=== PATIENT | female | born 1995 | race Caucasian/White ===

== ENCOUNTER 2023-07-22 08:21 | Day surgery (SDC) | payer OTHER ==
[2023-07-20 11:16] VITALS: BMI 35.9
[2023-07-22] MEDS: LACTATED RINGERS 1,000 ML IV SCH (08:52)
[2023-07-22] MEDS: LIDOCAINE 1% (10MG/ML) FOR IV START INTRADERMA ONE (08:52)
[2023-07-22] MEDS ORDERED: MIDAZOLAM 2 MG/2 ML VIAL ONE (08:58)
[2023-07-22] MEDS ORDERED: PROPOFOL 10 MG/ML 20 ML VIAL IV ONE (08:58)
[2023-07-22 09:13] VITALS: TEMP 98.1
--- NOTE | 2023-07-22 09:15 | P.PCN ---
Date of Procedure: 07/22/23 Procedure(s) Performed: BRIEF HISTORY: Patient is a 27-year-old pleasant white female scheduled for an elective colonoscopy as a part of change in bowel habits for the last 6 months duration. PROCEDURE PERFORMED: Colonoscopy. PREOPERATIVE DIAGNOSIS:Change in bowel habits IV sedation per Anesthesia. PROCEDURE: After informed consent was obtained, the patient, was brought into the endoscopy unit. IV sedation was administered by Anesthesia under continuous monitoring. Digital rectal examination was normal. Initially the Olympus CF-160 flexible video colonoscope was then inserted in the rectum, gradually advanced into the cecum without any difficulty. Careful examination was performed as the scope was gradually being withdrawn. Ileocecal valve and the appendiceal orifice were visualized and appeared normal. Prep was excellent. Mucosa of the cecum, ascending colon, transverse colon, descending colon, sigmoid colon, and rectum appeared normal. Retroflexion was performed in the rectum and no lesions were seen. The patient tolerated the procedure well. IMPRESSION: Normal-appearing colon from rectum to cecum with no use of colorectal neoplasia. RECOMMENDATIONS: Findings of this examination were discussed with the patient As well as a family. She was advised to be a high-fiber diet and take fiber supplements as needed.
[2023-07-22 09:58] VITALS: BP 114/69; PULSE 104; RESP 14
== END 2023-07-22 09:53 | disposition home or self-care (01) ==
LOC: ORWHC2ENDO 08:21
PROVIDERS: ATTEND Internal Medicine Gastroenterology
DX: R19.4 Change in bowel habit (principal); F41.9 Anxiety disorder, unspecified; Z88.2 Allergy status to sulfonamides; Z79.899 Other long term (current) drug therapy
CPT/HCPCS: 81025; 45378; J2250; J2704